=== PATIENT | female | born 1940 | race Caucasian/White ===

== ENCOUNTER 2025-09-04 14:01 | Outpatient (RCR) | payer MEDICARE, SELFPAY | END 2025-09-05 15:03 | disposition home or self-care (01) | LOC: PT 14:01 | PROVIDERS: PCP Internal Medicine; Visit Provider Nurse Practitioner Family | DX: S32.000D Wedge compression fracture of unspecified lumbar vertebra, subsequent encounter for fracture with routine healing (principal) | CPT/HCPCS: 97110; 97161 ==